=== PATIENT | male | born 1960 | race African-American/Black ===

== ENCOUNTER 2023-06-03 09:39 | Emergency (ER) | payer OTHER ==
[~2023-06-03] VITALS: Ht 182.9 cm; Wt 100.0 kg
[2023-06-03 09:46] VITALS: O2SAT 98
[2023-06-03 12:46] VITALS: BP 139/103; PULSE 67; RESP 18; TEMP 97.4
== END 2023-06-03 12:51 | disposition home or self-care (01) ==
LOC: ER 09:39
DX: M54.9 Dorsalgia, unspecified (principal); M25.512 Pain in left shoulder; E78.00 Pure hypercholesterolemia, unspecified; V49.40XA Driver injured in collision with unspecified motor vehicles in traffic accident, initial encounter; Y93.89 Activity, other specified; Y92.89 Other specified places as the place of occurrence of the external cause; Y99.8 Other external cause status
CPT/HCPCS: 99283